=== PATIENT | female | born 2000 | race Hispanic/Latino ===

== ENCOUNTER 2018-05-17 20:48 | Emergency (ER) | payer OTHER ==
[2018-05-17 21:07] VITALS: BP 110/74; PULSE 91; RESP 16; TEMP 98.9; O2SAT 95
--- NOTE | 2018-05-17 22:25 | ED PDOC ---
Arrival/HPI - General Historian: Patient - History of Present Illness Time/Duration: 1 hour Symptom Onset: Sudden Symptom Course: Resolved Quality: Stabbing Severity Level: 10 Activities at Onset: Rest <Lucho Ospina - Last Filed: 05/17/18 23:01> <Raoul Hernández - Last Filed: 05/18/18 00:13> - General Chief Complaint: Abdominal Pain Time Seen by Provider: 05/17/18 21:57 - History of Present Illness Narrative History of Present Illness (Text): Patient is a 17 year old female with no past medical history presenting to the emergency room with a complaint of left lower quadrant abdominal pain. Patient experienced acute onset of severe abdominal pain earlier tonight while relaxing at home. The pain was sharp and isolated to her left lower quadrant and did not radiate. The pain lasted for approximately 10 minutes and then resolved. She states her pain has completely resolved and she is now just mildly sore. The pain was located where she usually has her menstruation cramps but they are not usually as severe. Her LMP was 14 days ago and she is currently taking an OCP ( does not remember name) for control due to irregular periods. She has no medical complaints at this time. Denies fevers, chills, nausea, vomiting, diarrhea, constipation, chest pain, shortness of breath, numbness, tingling, vaginal bleeding, vaginal discharge or urinary symptoms. (Lucho Ospina) Past Medical History - Provider Review Nursing Documentation Reviewed: Yes - Cardiac Hx Cardiac Disorders: No - Pulmonary Hx Respiratory Disorders: No - Neurological Hx Neurological Disorder: No - HEENT Hx HEENT Disorder: No - Renal Hx Renal Disorder: No - Endocrine/Metabolic Hx Endocrine Disorders: No - Hematological/Oncological Hx Blood Disorders: No - Integumentary Hx Dermatological Disorder: No - Musculoskeletal/Rheumatological Hx Musculoskeletal Disorders: No - Gastrointestinal Hx Gastrointestinal Disorders: No - Genitourinary/Gynecological Hx Genitourinary Disorders: Yes Other/Comment: HEAVY MENSTRUATION - Psychiatric Hx Psychophysiologic Disorder: No Hx Substance Use: No <Lucho Ospina - Last Filed: 05/17/18 23:01> Family/Social History - Physician Review Nursing Documentation Reviewed: Yes Family/Social History: No Known Family HX Smoking Status: Never Smoked Hx Alcohol Use: No Hx Substance Use: No <Lucho Ospina - Last Filed: 05/17/18 23:01> Allergies/Home Meds <Lucho Ospina - Last Filed: 05/17/18 23:01> <Raoul Hernández - Last Filed: 05/18/18 00:13> Allergies/Adverse Reactions: Allergies Penicillins Allergy (Verified 05/17/18 21:01) SWELLING vancomycin Allergy (Verified 05/17/18 21:01) SWELLING Home Medications: Home Meds Medication Instructions Recorded Confirmed Norethindrone-E.estradiol-Iron 1 tab PO DAILY 05/17/18 05/17/18 [ Tablet] Review of Systems - Physician Review All systems were reviewed & negative as marked: Yes - Review of Systems Constitutional: Normal. absent: Fatigue, Fevers Eyes: Normal ENT: Normal Respiratory: Normal. absent: SOB, Cough Cardiovascular: Normal. absent: Chest Pain, Palpitations Gastrointestinal: Abdominal Pain (LLQ), Nausea (2/2 to pain). absent: Constipation, Diarrhea, Vomiting Genitourinary Female: Normal. absent: Vaginal Bleeding, Vaginal Discharge Musculoskeletal: Normal Skin: Normal Neurological: Normal Endocrine: Normal Psychiatric: Normal <Lucho Ospina - Last Filed: 05/17/18 23:01> Physical Exam Vital Signs Reviewed: Yes Temperature: Afebrile Blood Pressure: Normal Pulse: Regular Respiratory Rate: Normal Appearance: Positive for: Well-Appearing, Non-Toxic, Comfortable Pain Distress: None Mental Status: Positive for: Alert and Oriented X 3 - Systems Exam Head: Present: Atraumatic, Normocephalic Extroacular Muscles: Present: EOMI Conjunctiva: Present: Normal Mouth: Present: Moist Mucous Membranes Nose (External): Present: Atraumatic Nose (Internal): Present: Normal Inspection, No Active Bleeding, Moist Neck: Present: Normal Range of Motion Respiratory/Chest: Present: Clear to Auscultation, Good Air Exchange. No: Respiratory Distress, Accessory Muscle Use Cardiovascular: Present: Regular Rate and Rhythm, Normal S1, S2. No: Murmurs Abdomen: Present: Normal Bowel Sounds. No: Tenderness (complains of soreness in LLQ to palpation, no pain), Distention, Peritoneal Signs, Rebound, Guarding, McBurney's Point Tender, Rovsing's Sign Present, Scars Upper Extremity: Present: Normal Inspection, NORMAL PULSES. No: Cyanosis, Edema Lower Extremity: Present: Normal Inspection, NORMAL PULSES. No: Edema, CALF TENDERNESS Neurological: Present: GCS=15, Speech Normal Skin: Present: Warm, Dry, Normal Color. No: Rashes Psychiatric: Present: Alert, Oriented x 3, Normal Insight, Normal Concentration <Lucho Ospina - Last Filed: 05/17/18 23:01> Vital Signs Temp Pulse Resp BP Pulse Ox 05/17/18 21:03 98.9 F 91 H 16 110/74 95 Medical Decision Making <Lucho Ospina - Last Filed: 05/17/18 23:01> <Raoul Hernández - Last Filed: 05/18/18 00:13> ED Course and Treatment: Patient is a healthy appearing young female in no acute distress accompanied by her mother. Patient states that she does not want blood work. After the examination, which was normal throughout, patient is unsure if she needs any further treatment. She repeats multiple times that she is in no pain and feels completely normal. Patient was offered blood work and an ultrasound to r/o ovarian pathology. After discussion with her mother, patient states she does not want any blood work or imaging. Her symptoms are completely resolved and she will like to go home without any treatment. Patient instructed to follow up with her primary care physician and her mainspring torque tester. Patient and her mother agree and state they will follow up this week. (Lucho Ospina) Pt seen and evaluated with emergency medical technician. Aware and agree with HPI, clinical findings, plan, and management. Pt, with no past medical history, presented for LLQ pain earlier, which has resolved. (Raoul Hernández) - PA / [employer] OFFICER / Resident Statement / has reviewed & agrees with the documentation as recorded. / has examined the patient and agrees with the treatment plan. <Raoul Hernández - Last Filed: 05/18/18 00:13> Disposition/Present on Arrival - Present on Arrival Any Indicators Present on Arrival: No History of DVT/PE: No History of Uncontrolled Diabetes: No Urinary Catheter: No History of Decub. Ulcer: No History Surgical Site Infection Following: None - Disposition Have Diagnosis and Disposition been Completed?: Yes Disposition Time: 22:18 Patient Plan: Discharge <Lucho Ospina - Last Filed: 05/17/18 23:01> <Edgar,Robert - Last Filed: 05/18/18 00:13> - Disposition Diagnosis: Abdominal pain Disposition: HOME/ ROUTINE Patient Problems: Current Active Problems Problem Status Onset Abdominal pain Acute Condition: IMPROVED Discharge Instructions (ExitCare): Acute Abdomen (Belly Pain), Adult (DC) Additional Instructions: Patient is to follow up with her primary care physician within 2-3 days. Patient is to follow up with her mainspring torque tester physician within one week. If patient experiences any new or worsening symptoms, please go directly to the nearest emergency facility. Referrals: Micheal Everett MD [Primary Care Provider] - Follow up with primary Forms: [employer] (Sinhala)
== END 2018-05-17 22:30 | disposition home or self-care (01) ==
LOC: ED 20:48
DX: R10.32 Left lower quadrant pain (principal)